=== PATIENT | female | born 1955 | race American Indian/Alaskan Native ===

== ENCOUNTER 2017-02-28 21:29 | Emergency (ER) | payer MEDICARE ==
[2017-02-28] MEDS ORDERED: TYLENOL PO ONE (22:12)
[2017-02-28 22:31] LABS: Basophils % (Auto) 0.8 % (0.0-1.8); Eosinophils % (Auto) 11.5 % (0.0-4.3); Hematocrit 36.9 % (30.3-42.9); Hemoglobin 12.1 gm/dl (10.1-14.3); Mean Corpuscular HGB Conc 33 % (30-34); Mean Corpuscular Hemoglobin 30 pg (28-32); Mean Corpuscular Volume 92 fl (79-97); Platelet Count 214 K/mm3 (140-440); Red Blood Count 4.01 M/mm3 (3.65-5.03)
[2017-02-28 23:13] LABS: Anion Gap 14 mmol/L; Blood Urea Nitrogen 16 mg/dL (7-17); Calcium 8.7 mg/dL (8.4-10.2); Carbon Dioxide 24 mmol/L (22-30); Chloride 104.7 mmol/L (98-107); Glucose 117 mg/dL (65-100); Sodium 139 mmol/L (137-145)
[2017-03-01 02:31] VITALS: BP 115/51
--- NOTE | 2017-03-01 03:05 | XRay Report ---
FINAL REPORT PROCEDURE: XR CHEST ROUTINE 2V TECHNIQUE: PA and lateral chest radiographs were obtained. CPT 23667 HISTORY: cp COMPARISON: No prior studies are available for comparison. FINDINGS: Heart: Normal. Mediastinum/Vessels: Multiple sternal wires are present. Lungs/Pleural space: Normal. Bony thorax: No acute osseous abnormality. Other: IMPRESSION: There is no evidence of an acute cardiopulmonary process..
[2017-03-01] MEDS ORDERED: PEPCID IV ONE (03:06)
[2017-03-01] MEDS ORDERED: BENADRYL IV ONE (03:06)
[2017-03-01] MEDS ORDERED: NACL 0.9% 500 ML 500 ML IV ONE (03:06)
--- NOTE | 2017-03-01 03:07 | Emergency Department Report ---
ED General Adult HPI - General Chief complaint: Chest Pain Stated complaint: CHEST PAIN, RASH Time Seen by Provider: 03/01/17 02:52 Source: patient, RN notes reviewed Mode of arrival: Ambulatory Limitations: No Limitations - History of Present Illness Initial comments: This is a 61-year-old female. She is previously unknown to me. She does not have a local primary care doctor. Past medical history includes surgical repair for thoracic aortic aneurysm in 2001, and [place]. Also has a history of chronic back pain, obesity. The patient presents to the ER. To me, her main complaint is rash. Rash started on the neck, then went to her face. It is pruritic. It has been present for about a week. It is nonpainful. It has no exacerbating or relieving factors. No recent creams, colognes, detergents. There is no stridor or dysphonia. Of note, the patient's nurse informs me of the patient's initial complaint was chest pain. When I asked the patient about this, the patient endorses that she' s had chest pain on and off for about a week. It is in the bilateral breasts, most prominent in the left breast and left axilla. The pain is not associated with nausea, vomiting or diaphoresis. The patient denies shortness of breath. She denies diaphoresis. The patient denies fever. She denies cough and mucus production. -: Gradual Location: face, chest Severity scale (0 -10): 4 Consistency: other (per hpi) Improves with: other (per hpi) Worsens with: other (per hpi) Associated Symptoms: chest pain, rash - Related Data Previous Rx's Medication Instructions Recorded Last Taken Type EPINEPHrine [Epipen 2-Irving] 0.3 mg IM DAILY PRN #2 ml 03/01/17 Unknown Rx Famotidine [Pepcid] 20 mg PO BID #10 tablet 03/01/17 Unknown Rx Hydrocortisone [Hydrocortisone 1% 114 gm TP BID #1 lotion 03/01/17 Unknown Rx LOTION] diphenhydrAMINE [Benadryl] 50 mg PO Q8HR PRN #20 capsule 03/01/17 Unknown Rx Allergies Allergy/AdvReac Type Severity Reaction Status Date / Time No Known Allergies Allergy Verified 03/01/17 03:00 ED Review of Systems ROS: Stated complaint: CHEST PAIN, RASH Other details as noted in HPI Constitutional: denies: fever, malaise Eyes: denies: vision change ENT: denies: epistaxis Respiratory: see HPI Cardiovascular: chest pain Gastrointestinal: denies: abdominal pain Genitourinary: denies: urgency, dysuria Musculoskeletal: back pain (chronic) Skin: rash, lesions Neurological: denies: weakness Psychiatric: denies: anxiety ED Past Medical Hx - Past Medical History Previous Medical History?: Yes Additional medical history: AORTIC ANEURYSM/ CHRONIC BACK PAIN - Surgical History Past Surgical History?: Yes Additional Surgical History: CARPAL TUNNEL - Social History Smoking Status: Never Smoker Substance Use Type: None - Medications Home Medications: Home Medications Medication Instructions Recorded Confirmed Last Taken Type EPINEPHrine [Epipen 2-Irving] 0.3 mg IM DAILY PRN #2 ml 03/01/17 Unknown Rx Famotidine [Pepcid] 20 mg PO BID #10 tablet 03/01/17 Unknown Rx Hydrocortisone [Hydrocortisone 1% 114 gm TP BID #1 lotion 03/01/17 Unknown Rx LOTION] diphenhydrAMINE [Benadryl] 50 mg PO Q8HR PRN #20 capsule 03/01/17 Unknown Rx ED Physical Exam - General Limitations: No Limitations General appearance: alert, in no apparent distress, obese - Head Head exam: Present: atraumatic, normocephalic - Eye Eye exam: Present: normal appearance, EOMI. Absent: nystagmus - ENT ENT exam: Present: normal exam, normal orophraynx, mucous membranes moist, normal external ear exam - Neck Neck exam: Present: normal inspection, full ROM. Absent: tenderness, meningismus - Respiratory Respiratory exam: Present: normal lung sounds bilaterally, other (the bilateral breast exam is unremarkable. The left axilla is unremarkable. During the breast examination, I am escorted by nurse Ernestina Sandy). Absent: respiratory distress, wheezes, rales, rhonchi, stridor, chest wall tenderness, accessory muscle use, decreased breath sounds, prolonged expiratory - Cardiovascular Cardiovascular Exam: Present: regular rate, normal rhythm, normal heart sounds. Absent: bradycardia, tachycardia, irregular rhythm, systolic murmur, diastolic murmur, rubs, gallop - GI/Abdominal GI/Abdominal exam: Present: soft, normal bowel sounds. Absent: distended, tenderness, guarding, rebound, rigid, pulsatile mass - Extremities Exam Extremities exam: Present: normal inspection, full ROM, normal capillary refill. Absent: pedal edema, joint swelling, calf tenderness - Back Exam Back exam: Present: normal inspection, full ROM. Absent: tenderness, CVA tenderness (R), CVA tenderness (L), muscle spasm, paraspinal tenderness, vertebral tenderness - Neurological Exam Neurological exam: Present: alert, oriented X3, other (Extraocular movements intact. Tongue midline. No facial droop. Facial sensation intact to light touch in the V1, V2, V3 distribution bilaterally. 5 and 5 strength in 4 extremities.. Sensation is intact to light touch in 4 extremities.). Absent: motor sensory deficit - Psychiatric Psychiatric exam: Present: normal affect, normal mood - Skin Skin exam: Present: warm, dry, intact, normal color. Absent: rash ED Course Vital Signs 02/28/17 03/01/17 03/01/17 22:04 00:58 02:30 Temperature 101.0 F H 98.3 F Pulse Rate 64 57 L Respiratory 20 14 16 Rate Blood Pressure 114/54 Blood Pressure 115/51 [Left] O2 Sat by Pulse 97 97 Oximetry - Reevaluation(s) Reevaluation #1: 03/01/17 03:14 differential diagnosis: Dermatitis, nonspecific, pneumonia, pericarditis, myocarditis, pleuritis, acute coronary syndrome, empyema, aortic aneurysm dysfunction Assessment and plan: 61-year-old female with 2 complaints. The patient's primary complaint is rash. It involves her face and back. Highly doubt myositis. We will send a CK. She is tolerating oral feeds, has no stridor or dysphonia or compromised her upper airway structures. She will be treated empirically with steroids, Pepcid, Benadryl. She can follow -up with an outpatient retail cashier associate for this. The patient minimizes her chest pain. She indicates it is not her primary complaint. However, she has a fever, given her history of aortic aneurysm repair, patient also endorses a recent airplane trip from [place] in mid January. Troponins negative, EKG nonspecific, low risk by GILBERT score, low risk by heart score. I troponins negative multiple times. Infiltrate is suggested on x-ray, patient most likely has a component of walking pneumonia. However, given that she is a very poor historian, we will obtain a CT scan of the chest. Reevaluation #2: 03/01/17 05:23 sleeping comfortably. The resolved. Troponins negative 3. EKG abnormal but unchanged. Patient reiterates that her primary complaint is not chest pain at this time, but her rash. CT scan of the chest is negative. The patient will be discharged with instructions to follow up with outpatient primary care, cardiology, dermatology. Reevaluation #3: 03/01/17 05:27 no obvious source of fever is elucidated, but patient has been in the ER for a prolonged period of time without clinical decompensation. Therefore, I don't believe that her fever is coming from any emergent pathology at this time, and she is suitable to follow up with outpatient primary care doctor, especially as she has remained afebrile. ED Medical Decision Making - Lab Data Result diagrams: 02/28/17 22:14 02/28/17 22:14 Vital Signs 02/28/17 03/01/17 03/01/17 22:04 00:58 02:30 Temperature 101.0 F H 98.3 F Pulse Rate 64 57 L Respiratory 20 14 16 Rate Blood Pressure 114/54 Blood Pressure 115/51 [Left] O2 Sat by Pulse 97 97 Oximetry Lab Results 02/28/17 02/28/17 03/01/17 Range/Units 22:14 22:14 01:40 WBC 7.0 (4.5-11.0) K/mm3 RBC 4.01 (3.65-5.03) M/mm3 Hgb 12.1 (10.1-14.3) gm/dl Hct 36.9 (30.3-42.9) % MCV 92 (79-97) fl MCH 30 (28-32) pg MCHC 33 (30-34) % RDW 14.0 (13.2-15.2) % Plt Count 214 (140-440) K/mm3 Lymph % (Auto) 38.7 H (13.4-35.0) % [place] % (Auto) 9.2 H (0.0-7.3) % Eos % (Auto) 11.5 H (0.0-4.3) % Baso % (Auto) 0.8 (0.0-1.8) % Lymph # 2.7 (1.2-5.4) K/mm3 [place] # 0.6 (0.0-0.8) K/mm3 Eos # 0.8 H (0.0-0.4) K/mm3 Baso # 0.1 (0.0-0.1) K/mm3 Seg Neutrophils % 39.8 L (40.0-70.0) % Seg Neutrophils # 2.8 (1.8-7.7) K/mm3 Sodium 139 (137-145) mmol/L Potassium 4.0 (3.6-5.0) mmol/L Chloride 104.7 (98-107) mmol/L Carbon Dioxide 24 (22-30) mmol/L Anion Gap 14 mmol/L BUN 16 (7-17) mg/dL Creatinine 0.8 (0.7-1.2) mg/dL Estimated GFR > 60 ml/min BUN/Creatinine Ratio 20.00 % Glucose 117 H (65-100) mg/dL Calcium 8.7 (8.4-10.2) mg/dL Troponin T < 0.010 < 0.010 (0.00-0.029) ng/mL - EKG Data -: EKG Interpreted by Me EKG shows normal: sinus rhythm - EKG Data When compared to previous EKG there are: previous EKG unavailable 03/01/17 03:16 sinus bradycardia, 59 beats per minute, normal axis, normal intervals, T-wave inversion V2, not morphologically consistent with STEMI, no prior for comparison Repeat EKG demonstrates sinus bradycardia, 49 beats per minute, QTC 458 ms, T wave inversion V2, not consistent with STEMI. 03/01/17 05:24 - Radiology Data Radiology results: report reviewed, image reviewed interpreted by me: Retrocardiac infiltrate is suggested CT scan of the chest was negative for acute disease Critical care attestation.: If time is entered above; I have spent that time in minutes in the direct care of this critically ill patient, excluding procedure time. ED Disposition Clinical Impression: Rash, Chest pain Disposition: DISCHARGED TO HOME OR SELFCARE Is pt being admited?: No Does the pt Need Aspirin: No Condition: Stable Instructions: Chest Pain (ED), Acute Rash (ED) Additional Instructions: Take the medications as directed. Follow up with a primary care doctor or swage tender within the next 3-5 days for evaluation of your chest pain. Laboratory studies were unremarkable, x-ray of the chest was unremarkable, CT scan of the chest did not demonstrate pneumonia or blood clot in her lung. EKG demonstrated nonspecific abnormalities which should be followed up by either primary care or cardiology. take the medications and cream as directed for the rash. Follow up with the retail cashier associate, Dr. de jesus, or any retail cashier associate within the next 2-3 weeks. Return to the ER right away with new pain, worsened pain, migration of pain, fevers or chills, nausea or vomiting, inability to tolerate liquid feeds. Referrals: PRIMARY CARE, [Primary Care Provider] - 3-5 Days TAMY ANDERSON MD [Staff Physician] - 3-5 Days DEBI DE JESUS MD [Staff Physician] - 3-5 Days MARY TORRES MD [Staff Physician] - 3-5 Days LUIZ BISHOP MD [Staff Physician] - 3-5 Days
[2017-03-01] MEDS ORDERED: ROCEPHIN/NS 1 GM/50 ML 1 GM/50 ML BAG IV ONE (03:16)
[2017-03-01] MEDS ORDERED: NACL ONE (03:40)
--- NOTE | 2017-03-01 05:16 | Cat Scan Report ---
FINAL REPORT PROCEDURE: CT ANGIO CHEST TECHNIQUE: Computerized tomographic angiography of the chest was performed after the IV injection of iodinated nonionic contrast including image processing. The image data was postprocessed using 2-dimensional multiplanar reformatted (MPR) and 3-dimensional (MIP and/or volume rendered) techniques. HISTORY: chest pain COMPARISON: No prior studies are available for comparison. FINDINGS: Heart and pericardium: Normal. Thoracic aorta: Normal. Pulmonary vasculature: Normal. Lymph nodes: No enlarged thoracic lymph nodes. Lungs: Lungs are clear. No infiltrate, effusion or pneumothorax. The central airway is patent. Pleural space: No effusion, thickening, or pneumothorax. Musculoskeletal structures: No significant abnormality. Upper abdominal structures: No significant abnormality. IMPRESSION: There is no evidence of intestinal or urinary tract obstruction. No ileus or enteritis.
== END 2017-03-01 06:35 | disposition home or self-care (01) ==
LOC: ED 21:29
DX: R21 Rash and other nonspecific skin eruption (principal); R07.9 Chest pain, unspecified
CPT/HCPCS: 36415; 71020; 71275; 80048; 84484; 85025; 93005; 93010; 96374; 96375; 99285; J1200; J2930; J7040; Q9967; J0696

== ENCOUNTER 2017-04-22 16:36 | Emergency (ER) | payer MEDICARE ==
--- NOTE | 2017-04-22 17:00 | Emergency Department Report ---
Entered by KAREN WRIGHT, acting as scribe for MIGNON BUSCH NP. Chief Complaint: Chest Pain Stated Complaint: CHEST PAIN Time Seen by Provider: 04/22/17 16:52 - HPI History of Present Illness: 61 y/o female presents to the ED c/o left chest pain. Associated symptoms include dry cough and fever . Patient was discharged from [facility] 10 days ago c/o left chest pain. NKDA. - ROS Review of Systems: +chest pain +dry cough -fever -chills - Exam Vital Signs: Vital Signs 04/22/17 16:46 Temperature 100.3 F H Pulse Rate 57 L Respiratory 18 Rate Blood Pressure 161/62 O2 Sat by Pulse 99 Oximetry Physical Exam: pt looks well, non toxic. obese gcs 15 steady gait MSE screening note: Focused history and physical exam performed. Due to findings the following was ordered: xr, labs ED Disposition for MSE Condition: Stable This documentation as recorded by the scribe,KAREN WRIGHT,accurately reflects the service I personally performed and the decisions made by ,MIGNON BUSCH, JACKER FEEDER.
[2017-04-22 17:22] LABS: Basophils % (Auto) 0.9 % (0.0-1.8); Eosinophils % (Auto) 5.3 % (0.0-4.3); Hematocrit 39.8 % (30.3-42.9); Hemoglobin 12.9 gm/dl (10.1-14.3); Mean Corpuscular HGB Conc 33 % (30-34); Mean Corpuscular Hemoglobin 29 pg (28-32); Mean Corpuscular Volume 90 fl (79-97); Platelet Count 246 K/mm3 (140-440); Red Blood Count 4.44 M/mm3 (3.65-5.03); Red Cell Distribution Width 14.7 % (13.2-15.2); White Blood Count 7.8 K/mm3 (4.5-11.0)
[2017-04-22 17:35] LABS: Alanine Aminotransferase 14 units/L (7-56); Albumin 4.3 g/dL (3.9-5); Albumin/Globulin Ratio 1.6 %; Alkaline Phosphatase 103 units/L (35-129); Anion Gap 20 mmol/L; BUN/Creatinine Ratio 27.14; Bilirubin,Total < 0.20 mg/dL (0.1-1.2); Blood Urea Nitrogen 19 mg/dL (7-17); Carbon Dioxide 23 mmol/L (22-30); Glucose 97 mg/dL (65-100); Potassium 4.6 mmol/L (3.6-5.0); Sodium 140 mmol/L (137-145)
[2017-04-23] MEDS ORDERED: TORADOL IM ONE (00:55)
[2017-04-23] MEDS ORDERED: NORCO 5/325 PO ONE (00:55)
--- NOTE | 2017-04-23 01:24 | Emergency Department Report ---
ED Chest Pain HPI - General Chief Complaint: Chest Pain Stated Complaint: CHEST PAIN Time Seen by Provider: 04/22/17 16:46 Source: patient Mode of arrival: Ambulatory Limitations: No Limitations - History of Present Illness Initial Comments: 61 year old female with a past medical history of hypertension, chronic back pain, neuropathy, thoracic aortic aneurysm repair, and arthritis presents to the hospital with complaints of wrist pain. Pain is Ravenel in the left side and described as sharp and continuous. Pain is rated 10/10 in intensity worse with movement, palpation, and cough. Patient has occasional dry cough. Low- grade temp here but denies fever at home. Patient denies shortness of breath, nausea vomiting, diaphoresis, calf tenderness, or leg edema. Patient has been admitted here recently February 28 and April 12 for chest pain. Patient had a negative CT angiogram in February and a negative stress test in March. Patient has continued to have chest pain since discharge. She states she was discharged home on Toradol 20 tablets reports that it did help her pain. Her primary care doctor Dr. Schofield wrote her for additional Toradol and Motrin however, the pharmacist did not fill the Toradol stated they needed further clarification from the doctor. Meanwhile the patient has been taking Motrin without improvement. Patient states that morphine helped her pain while she was admitted As per discharge summary patient was diagnosed with costochondritis/ reproducible chest wall pain. Severity scale (0 -10): 0 - Related Data Previous Rx's Medication Instructions Recorded Last Taken Type Gabapentin 600 mg PO TID #90 04/12/17 Unknown Rx Ketorolac [Toradol] 10 mg PO Q6H PRN #20 tablet 04/12/17 Unknown Rx HYDROcodone/APAP 5-325 [Limon 1 each PO Q6HR PRN #20 tablet 04/23/17 Unknown Rx 5/325] Nitrofurantoin Gilchrist/M-Cryst 100 mg PO BID #10 capsule 04/23/17 Unknown Rx [Macrobid CAP] Allergies Allergy/AdvReac Type Severity Reaction Status Date / Time No Known Allergies Allergy Verified 04/11/17 17:19 Heart Score - HEART Score History: Slightly suspicious EKG: Non-specific Age: 45-65 Risk factors: 1-2 risk factors Troponin: < normal limit HEART Score: 3 ED Review of Systems ROS: Stated complaint: CHEST PAIN Other details as noted in HPI Comment: All other systems reviewed and negative Other: Constitutional: No fevers chills Eyes: No eye pain visual changes ENT: No ear pain or throat pain Neck: Denies pain Respiratory: Denies cough wheezing shortness of breath Cardiovascular: as per hpi GI: Denies abdominal pain, nausea, vomiting, diarrhea : Denies dysuria Musculoskeletal: Denies back pain Skin: Denies rash, lesions, erythema Neurologic: Denies headache, numbness, weakness Psychiatric: Denies suicidal ideation, hallucinations ED Past Medical Hx - Past Medical History Hx Hypertension: Yes Hx Arthritis: Yes Hx Headaches / Migraines: Yes Additional medical history: CHRONIC BACK PAIN,neuropathy - Surgical History Additional Surgical History: CARPAL TUNNEL BOTH WRISTS. THORACIC AORTIC ANEURYSM REPAIR (approximately 2001). LOW BACK FUSION. BUNYONECTOMY LEFT FOOT - Social History Smoking Status: Never Smoker Substance Use Type: Alcohol - Medications Home Medications: Home Medications Medication Instructions Recorded Confirmed Last Taken Type Gabapentin 600 mg PO TID #90 04/12/17 Unknown Rx Ketorolac [Toradol] 10 mg PO Q6H PRN #20 tablet 04/12/17 Unknown Rx HYDROcodone/APAP 5-325 [Limon 1 each PO Q6HR PRN #20 tablet 04/23/17 Unknown Rx 5/325] Nitrofurantoin Gilchrist/M-Cryst 100 mg PO BID #10 capsule 04/23/17 Unknown Rx [Macrobid CAP] ED Physical Exam - General Limitations: No Limitations - Other Other exam information: General: No limitations, patient is alert in no acute distress Head exam: Atraumatic, normocephalic Eyes exam: Normal appearance, pupils equal reactive to light, extraocular movements intact ENT: Moist mucous membrane, normal oropharynx Neck exam: Normal inspection, full range of motion, no meningismus nontender Respiratory exam: Clear to auscultation bilateral, no wheezes, rales, crackles Cardiovascular: Normal rate and rhythm, normal heart sounds. Reproducible sternal and left-sided chest wall tenderness to palpation. Sternotomy wound noted Abdomen: Soft, nondistended, and nontender, with normal bowel sounds, no rebound, or guarding. Extremity: Full range of motion normal inspection no deformity, no tenderness or edema Back: Normal Inspection, full range of motion, no tenderness Neurologic: Alert, oriented x3, cranial nerves intact, no motor or sensory deficit Psychiatric: normal affect, normal mood Skin: Warm, dry, intact ED Course Vital Signs 04/22/17 04/22/17 04/22/17 16:46 23:15 23:17 Temperature 100.3 F H 98 F Pulse Rate 57 L 52 L Respiratory 18 18 18 Rate Blood Pressure 161/62 Blood Pressure 141/44 [Left] O2 Sat by Pulse 99 98 Oximetry 04/23/17 00:17 Temperature Pulse Rate Respiratory 18 Rate Blood Pressure Blood Pressure [Left] O2 Sat by Pulse Oximetry - Reevaluation(s) Reevaluation #1: 04/23/17 02:41 Meds given: norco, toradal for pain macrobid for uti Pain improved GILBERT score - Gilbert Score Age > 65: (0) No Aspirin use within the Past 7 Days: (0) No 3 or more CAD Risk Factors: (0) No 2 or more Angina events in past 24 hrs: (0) No Known CAD with more than 50% Stenosis: (0) No Elevated Cardiac Markers: (0) No ST Deviation Greater than 0.5mm: (0) No GILBERT Score: 0 ED Medical Decision Making - Lab Data Result diagrams: 04/22/17 17:01 04/22/17 17:01 Lab Results 04/22/17 04/22/17 04/23/17 Range/Units 17:01 17:01 00:02 WBC 7.8 (4.5-11.0) K/mm3 RBC 4.44 (3.65-5.03) M/mm3 Hgb 12.9 (10.1-14.3) gm/dl Hct 39.8 (30.3-42.9) % MCV 90 (79-97) fl MCH 29 (28-32) pg MCHC 33 (30-34) % RDW 14.7 (13.2-15.2) % Plt Count 246 (140-440) K/mm3 Lymph % (Auto) 41.0 H (13.4-35.0) % Gilchrist % (Auto) 7.1 (0.0-7.3) % Eos % (Auto) 5.3 H (0.0-4.3) % Baso % (Auto) 0.9 (0.0-1.8) % Lymph # 3.2 (1.2-5.4) K/mm3 Gilchrist # 0.5 (0.0-0.8) K/mm3 Eos # 0.4 (0.0-0.4) K/mm3 Baso # 0.1 (0.0-0.1) K/mm3 Seg Neutrophils % 45.7 (40.0-70.0) % Seg Neutrophils # 3.5 (1.8-7.7) K/mm3 Sodium 140 (137-145) mmol/L Potassium 4.6 (3.6-5.0) mmol/L Chloride 102.0 (98-107) mmol/L Carbon Dioxide 23 (22-30) mmol/L Anion Gap 20 mmol/L BUN 19 H (7-17) mg/dL Creatinine 0.7 (0.7-1.2) mg/dL Estimated GFR > 60 ml/min BUN/Creatinine Ratio 27.14 % Glucose 97 (65-100) mg/dL Calcium 9.0 (8.4-10.2) mg/dL Total Bilirubin < 0.20 (0.1-1.2) mg/dL AST 17 (5-40) units/L ALT 14 (7-56) units/L Alkaline Phosphatase 103 (35-129) units/L Troponin T < 0.010 < 0.010 (0.00-0.029) ng/mL Total Protein 7.0 (6.3-8.2) g/dL Albumin 4.3 (3.9-5) g/dL Albumin/Globulin Ratio 1.6 % Urine Color (Yellow) Urine Turbidity (Clear) Urine pH (5.0-7.0) Ur Specific Pullman (1.003-1.030) Urine Protein (Negative) mg/dL Urine Glucose (UA) (Negative) mg/dL Urine Ketones (Negative) mg/dL Urine Blood (Negative) Urine Nitrite (Negative) Urine Bilirubin (Negative) Urine Urobilinogen (<2.0) mg/dL Ur Leukocyte Esterase (Negative) Urine WBC (Auto) (0.0-6.0) /HPF Urine RBC (Auto) (0.0-6.0) /HPF U Epithel Cells (Auto) (0-13.0) /HPF 04/23/17 Range/Units 01:56 WBC (4.5-11.0) K/mm3 RBC (3.65-5.03) M/mm3 Hgb (10.1-14.3) gm/dl Hct (30.3-42.9) % MCV (79-97) fl MCH (28-32) pg MCHC (30-34) % RDW (13.2-15.2) % Plt Count (140-440) K/mm3 Lymph % (Auto) (13.4-35.0) % Gilchrist % (Auto) (0.0-7.3) % Eos % (Auto) (0.0-4.3) % Baso % (Auto) (0.0-1.8) % Lymph # (1.2-5.4) K/mm3 Gilchrist # (0.0-0.8) K/mm3 Eos # (0.0-0.4) K/mm3 Baso # (0.0-0.1) K/mm3 Seg Neutrophils % (40.0-70.0) % Seg Neutrophils # (1.8-7.7) K/mm3 Sodium (137-145) mmol/L Potassium (3.6-5.0) mmol/L Chloride (98-107) mmol/L Carbon Dioxide (22-30) mmol/L Anion Gap mmol/L BUN (7-17) mg/dL Creatinine (0.7-1.2) mg/dL Estimated GFR ml/min BUN/Creatinine Ratio % Glucose (65-100) mg/dL Calcium (8.4-10.2) mg/dL Total Bilirubin (0.1-1.2) mg/dL AST (5-40) units/L ALT (7-56) units/L Alkaline Phosphatase (35-129) units/L Troponin T (0.00-0.029) ng/mL Total Protein (6.3-8.2) g/dL Albumin (3.9-5) g/dL Albumin/Globulin Ratio % Urine Color Straw (Yellow) Urine Turbidity Clear (Clear) Urine pH 5.0 (5.0-7.0) Ur Specific Pullman 1.014 (1.003-1.030) Urine Protein <15 mg/dl (Negative) mg/dL Urine Glucose (UA) Neg (Negative) mg/dL Urine Ketones Neg (Negative) mg/dL Urine Blood Sm (Negative) Urine Nitrite Neg (Negative) Urine Bilirubin Neg (Negative) Urine Urobilinogen < 2.0 (<2.0) mg/dL Ur Leukocyte Esterase Mod (Negative) Urine WBC (Auto) 11.0 H (0.0-6.0) /HPF Urine RBC (Auto) 2.0 (0.0-6.0) /HPF U Epithel Cells (Auto) < 1.0 (0-13.0) /HPF - EKG Data -: EKG Interpreted by Me (sinus bradycardia rate 55 nonspecific T abnormality) - EKG Data When compared to previous EKG there are: no significant change (compared to ) - Radiology Data Radiology results: image reviewed (chest x-ray: Previous sternotomy no acute findings) - Medical Decision Making Patient's chest pain appears to be reproducible on palpation. Patient denies any associated symptoms such as shortness of breath, nausea, vomiting, or diaphoresis. Patient has 2 negative sets of cardiac enzymes and recent stress test and a recent negative CT angiogram chest for similar symptoms. It appears that the patient's pain has been inadequately managed as outpatient and she is awaiting a refill of Toradol which has helped her pain in the past. Patient was educated to not take Motrin and Toradol together. I will add Limon since she states that tramadol does not help her pain. Patient has a low-grade temp here 100.3 that resolved spontaneously. Upon previous visit patient had a temperature of 101. No specific treatment or diagnosis initiated for fever. Patient might have an underlying viral syndrome causing costochondritis a she complains of a mild cough. She denies urinary symptoms however mild urine leukocytosis will be treated with macrobid. - Differential Diagnosis costochondritis, WI, atypical chest pain, PE, chronic pain Critical Care Time: No Critical care attestation.: If time is entered above; I have spent that time in minutes in the direct care of this critically ill patient, excluding procedure time. ED Disposition Clinical Impression: Costochondritis, HTN (hypertension), Urine leukocytes increased Disposition: 09 OP ADMIT IP TO THIS HOSP Is pt being admited?: Yes Condition: Stable Instructions: Costochondritis (ED), Urinary Tract Infection in Women (ED) Additional Instructions: Take the medication as prescribed. Follow up with your doctor. Return if symptoms worsen. You may take Limon and Motrin together and you may also take Limon and Toradol together. DO NOT take Motrin and Toradol together. These are the same class of medication and you increase your risk of stomach upset, ulcers, and kidney failure if you take these together. Prescriptions: HYDROcodone/APAP 5-325 [Limon 5/325] 1 each PO Q6HR PRN #20 tablet PRN Reason: Pain Nitrofurantoin Gilchrist/M-Cryst [Macrobid CAP] 100 mg PO BID #10 capsule Referrals: LORAINE SCHOFIELD MD [Referring] - 2-3 Days Time of Disposition: 03:00
[2017-04-23 02:36] LABS: Bilirubin,Urine NEG (Negative); Blood,Urine SM (Negative); Ketones,Urine NEG (Negative); Leukocyte Esterase,Urine MOD (Negative); Nitrite,Urine NEG (Negative); Protein,Urine <15 mg/dL mg/dL (Negative); Urobilinogen,Urine < 2.0 mg/dL (<2.0)
[2017-04-23] MEDS ORDERED: MACROBID PO ONE (02:42)
[2017-04-23 02:44] VITALS: BP 133/81
--- NOTE | 2017-04-23 08:18 | XRay Report ---
CHEST TWO VIEWS: 04/22/17 16:36:00 CLINICAL: Chest pain. COMPARISON: 04/12/17 FINDINGS: Stable cardiomegaly. Normal pulmonary vessels. Lungs are relatively clear. No airspace disease or pleural effusion. Median sternotomy wires. IMPRESSION: Cardiomegaly but no CHF.
== END 2017-04-23 03:44 | disposition home or self-care (01) ==
LOC: ED 16:36
DX: M94.0 Chondrocostal junction syndrome [Tietze] (principal); M25.539 Pain in unspecified wrist; I10 Essential (primary) hypertension; R82.99 Other abnormal findings in urine; M19.90 Unspecified osteoarthritis, unspecified site; G43.909 Migraine, unspecified, not intractable, without status migrainosus; G62.9 Polyneuropathy, unspecified
CPT/HCPCS: 36415; 71020; 80053; 81001; 84484; 85025; 87086; 93005; 93010; 96372; 99284; J1885